=== PATIENT | female | born 1960 | race Two or more races ===

== ENCOUNTER 2019-02-20 00:49 | Emergency (ER) | payer OTHER ==
[~2019-02-20] VITALS: Ht 160 cm; Wt 72.6 kg
[~2019-02-20 00:49] MED LIST: ZOLOFT50 MG
[2019-02-20] MEDS ORDERED: ZIAC 10/6.25 MG1 TAB (03:18)
== END 2019-02-20 07:08 ==
LOC: ER 00:49 → CPU-OBS 00:55 → ER 00:55
DX: R07.89 Other chest pain (principal); I10 Essential (primary) hypertension
CPT/HCPCS: G0378; G0379; 93005

== ENCOUNTER 2019-03-30 09:41 | Emergency (ER) | payer OTHER ==
[~2019-03-30] VITALS: Ht 160 cm; Wt 72.6 kg
[~2019-03-30 09:41] MED LIST changes: +ZIAC 10/6.25 MG1 TAB
[2019-03-30] MEDS ORDERED: AVAPRO300 MG PO (10:24)
[2019-03-30] MEDS ORDERED: ZOLOFT50 MG PO (10:24)
[2019-03-30] MEDS ORDERED: ZIAC 10/6.25 MG1 TAB PO (10:25)
== END 2019-03-30 14:20 | disposition home or self-care (01) ==
LOC: ER 09:41
DX: R07.89 Other chest pain (principal)

== ENCOUNTER 2019-11-24 04:38 | Emergency (ER) | payer OTHER ==
[~2019-11-24] VITALS: Ht 160 cm; Wt 72.6 kg
[~2019-11-24 04:38] MED LIST changes: +AVAPRO300 MG PO; +ZIAC 10/6.25 MG1 TAB PO; +ZOLOFT50 MG PO
== END 2019-11-24 13:09 | disposition home or self-care (01) ==
LOC: ER 04:38
DX: R07.89 Other chest pain (principal); I11.9 Hypertensive heart disease without heart failure; E78.49 Other hyperlipidemia; Z20.828 Contact with and (suspected) exposure to other viral communicable diseases

== ENCOUNTER 2024-04-11 03:49 | Emergency (ER) | payer OTHER ==
[~2024-04-11] VITALS: Ht 160 cm; Wt 70.3 kg
[2024-04-11] MEDS ORDERED: AVAPRO300 MG (04:29)
[2024-04-11] MEDS ORDERED: BISOPROLOL-HCT1 EACH (04:29)
[2024-04-11] MEDS ORDERED: NORVASC2.5 M1 (04:30)
[2024-04-11] MEDS ORDERED: AMLODIPINE-OLM1 EAC2 (04:30)
[2024-04-11] MEDS ORDERED: HYDRALAZINE HCL25 MG (04:30)
[2024-04-11] MEDS ORDERED: cloNIDine HCL 0.2 MG TABLET PO ONE (05:00)
[2024-04-11] MEDS ORDERED: ENALAPRILAT DIHYDRATE 1.25 MG/ML VIAL IV ONE ×2 (05:00→05:32)
[2024-04-11] MEDS ORDERED: CLONIDINE HCL 0.1 MG TABLET PO ONE (05:32)
[2024-04-11 06:26] LABS: HEMATOCRIT 43.1 % (36.0-45.00); HEMOGLOBIN 14.9 g/dL (12.0-15.00); MEAN CELL VOLUME 85.2 fL (80.00-100.00); MEAN CORPUSCULAR HEMOGLOBIN 29.5 pg (27.00-32.0); MEAN CORPUSCULAR HGB CONC 34.6 g/dl (32.0-36.0); PLATELET COUNT 220 K/uL (150-450); RED BLOOD COUNT 5.06 M/uL (4.00-6.00); RED CELL DISTRIBUTION WIDTH 14.1 % (11.5-14.5)
[2024-04-11 06:49] LABS: ALBUMIN 3.6 gm/dL (3.4-5.0); BILIRUBIN TOTAL 0.78 mg/dL (0.3-1.2); CALCIUM 8.8 mg/dL (8.5-10.1); CREATININE SERUM 1.11 mg/dL (0.55-1.02); GFR 49.33; GLOBULINA 3.6 G/DL (2.4-3.5); POTASSIUM 4.36 mEq/L (3.5-5.1); TOTAL PROTEIN 7.2 gm/dL (6.4-8.2)
== END 2024-04-11 07:50 | disposition home or self-care (01) ==
LOC: ER 03:51
PROVIDERS: General Practice
DX: I16.9 Hypertensive crisis, unspecified (principal); I11.9 Hypertensive heart disease without heart failure; Z88.8 Allergy status to other drugs, medicaments and biological substances